=== PATIENT | male | born 1945 | race Caucasian/White ===

== ENCOUNTER 2018-12-10 00:25 | Emergency (ER) | payer MEDICARE, MEDICAID ==
[~2018-12-10] VITALS: Ht 170.2 cm; Wt 71.0 kg
[2018-12-10 07:30] VITALS: BP 146/88
== END 2018-12-10 09:30 | disposition left against medical advice (07) ==
LOC: ER 01:27
DX: M54.9 Dorsalgia, unspecified (principal); M79.671 Pain in right foot; Z53.21 Procedure and treatment not carried out due to patient leaving prior to being seen by health care provider